=== PATIENT | female | born 1950 | race Caucasian/White ===

== ENCOUNTER 2017-01-02 20:34 | Emergency (ER) | payer OTHER ==
[2017-01-02 20:44] VITALS: BP 200/77; PULSE 72; TEMP 97.3; BMI 34.3
[2017-01-02] MEDS ORDERED: CODEINE SO4 30 MG TABLET PO ONE (20:47)
--- NOTE | 2017-01-02 20:47 | PDOC ---
History of Present Illness - General History Source: Patient, Family Exam Limitations: No Limitations - History of Present Illness Initial Comments: 01/02/17 21:04 Patient is 66 year old female with a significant past medical history of multiple sclerosis, heart murmur, hypertension, and hyperlipidemia who presents to the ED with 4 days of productive cough with yellow sputum. The patient reports the productive cough has been progressively worse and is made worse with cold air. The patient also reports a subjective fever that resolved approx. two days ago. The patient reports to have taken Tylenol for the fever with relief. The patient also reports a tingling sensation in her hands. The patient denies headache, blurred vision, double vision, or sweating. The patient denies shortness of breath, chest pain, or palpitations. The patient denies nausea, vomiting, diarrhea or constipation. Allergies: Cortisone and Levofloxacin Past surgical history: Two cardiac stents Social history: Social drinker. Nonsmoker. Denies recreational drug use. Family history: The patient report a familial history of maternal and paternal heart problems and maternal hypertension. Primary Care Physician: Dr. Jose L Cordoba <Ino Roman - Last Filed: 01/02/17 21:04> <Willam Burciaga - Last Filed: 01/03/17 06:36> - General Chief Complaint: Respiratory Stated Complaint: COUGH & FEVER Time Seen by Provider: 01/02/17 20:41 Past History <Ino Roman - Last Filed: 01/02/17 21:04> <Willam Burciaga - Last Filed: 01/03/17 06:36> - Past Medical History Allergies/Adverse Reactions: Allergies Allergy/AdvReac Type Severity Reaction Status Date / Time cortisone Allergy Unknown Verified 01/02/17 20:36 levofloxacin [From Levaquin] Allergy Unknown Verified 01/02/17 20:36 Home Medications: Ambulatory Orders Aspirin [Aspirin EC] 81 mg PO DAILY 01/02/17 Atorvastatin Ca [Lipitor] 40 mg PO DAILY 01/02/17 Carvedilol [Coreg -] 12.5 mg PO BID 01/02/17 Clopidogrel Bisulfate [Plavix -] 75 mg PO DAILY 01/02/17 Guaifenesin/Codeine Phosphate [Codeine-Guaifen 10-100 mg/5 ml] 15 ml PO HS PRN # 100 liquid MDD 15ml 01/02/17 Irbesartan [Avapro] 300 mg PO DAILY 01/02/17 Review of Systems - Review of Systems Comments:: 01/02/17 21:05 GENERAL/CONSTITUTIONAL: +Fever (resolved). No chills. No weakness. HEAD, EYES, EARS, NOSE AND THROAT: No change in vision. No ear pain or discharge. No sore throat. CARDIOVASCULAR: No chest pain or shortness of breath. RESPIRATORY: +Productive Cough with yellow sputum. No wheezing, or hemoptysis. GASTROINTESTINAL: No nausea, vomiting, diarrhea or constipation. GENITOURINARY: No dysuria, frequency, or change in urination. MUSCULOSKELETAL: No joint or muscle swelling or pain. No neck or back pain. SKIN: No rash NEUROLOGIC: +Tingling sensation in hands. No headache, vertigo, loss of consciousness, or change in strength. ENDOCRINE: No increased thirst. No abnormal weight change. HEMATOLOGIC/LYMPHATIC: No anemia, easy bleeding, or history of blood clots. ALLERGIC/IMMUNOLOGIC: No hives or skin allergy. <Ino Roman - Last Filed: 01/02/17 21:04> *Physical Exam - Vital Signs Last Vital Signs Temp Pulse Resp BP Pulse Ox 97.3 F L 72 16 200/77 98 01/02/17 20:35 01/02/17 20:35 01/02/17 20:35 01/02/17 20:35 01/02/17 20:35 - Physical Exam Comments: 01/02/17 21:05 GENERAL: Awake, alert, and fully oriented, in no acute distress HEAD: No signs of trauma EYES: PERRLA, EOMI, sclera anicteric, conjunctiva clear ENT: Auricles normal inspection, hearing grossly normal, nares patent, oropharynx clear without exudates. Moist mucosa NECK: Normal ROM, supple, no lymphadenopathy, JVD, or masses LUNGS: Breath sounds equal, clear to auscultation bilaterally. No wheezes, and no crackles HEART: +Murmur. Regular rate and rhythm, normal S1 and S2, no rubs or gallops ABDOMEN: Soft, nontender, normoactive bowel sounds. No guarding, no rebound. No masses EXTREMITIES: Normal range of motion, no edema. No clubbing or cyanosis. No cords, erythema, or tenderness NEUROLOGICAL: Cranial nerves II through XII grossly intact. Normal speech, normal gait SKIN: Warm, Dry, normal turgor, no rashes or lesions noted. <Ino Roman - Last Filed: 01/02/17 21:04> ED Treatment Course - Medications Given in the ED: ED Medications Discontinued Medications Generic Name Dose Route Start Last Admin Trade Name Freq PRN Reason Stop Dose Admin Codeine Sulfate 60 mg 01/02/17 20:47 01/02/17 21:04 Codeine Sulfate - PO 01/02/17 20:48 Not Given ONCE ONE Guaifenesin/Codeine Phosphate 20 ml 01/02/17 21:00 01/02/17 21:00 Robitussin Ac - PO 01/02/17 21:01 20 ml ONCE ONE Administration <Ino Roman - Last Filed: 01/02/17 21:04> Medical Decision Making - Medical Decision Making 01/03/17 06:36 clear lungs with nl sat bronchitis anti-tussive <Willam Burciaga - Last Filed: 01/03/17 06:36> *DC/Admit/Observation/Transfer - Attestations Scribe Attestion: 01/02/17 21:06 Documentation prepared by Ino Roman, acting as medical records technician for Willam Burciaga MD. <Ino Roman - Last Filed: 01/02/17 21:04> <Willam Burciaga - Last Filed: 01/03/17 06:36> Diagnosis at time of Disposition: Cough - Discharge Dispostion Disposition: HOME Condition at time of disposition: Good - Prescriptions Prescriptions: Guaifenesin/Codeine Phosphate [Codeine-Guaifen 10-100 mg/5 ml] 15 ml PO HS PRN # 100 liquid MDD 15ml PRN Reason: Cough - Referrals Referrals: Jose L Cordoba [Primary Care Provider] - - Patient Instructions Printed Discharge Instructions: Cough - Post Discharge Activity
[2017-01-02] MEDS ORDERED: guaiFENesin/CODEINE 10 ML UNIT-DOSE CUPS ONE (20:59)
[2017-01-02] MEDS ORDERED: guaiFENesin/CODEINE 10 ML UNIT-DOSE CUPS PO ONE (21:00)
== END 2017-01-02 21:05 | disposition home or self-care (01) ==
LOC: FER 20:34
DX: R05 Cough (principal); G35 Multiple sclerosis; R01.1 Cardiac murmur, unspecified; I10 Essential (primary) hypertension; E78.5 Hyperlipidemia, unspecified; Z88.8 Allergy status to other drugs, medicaments and biological substances; Z79.82 Long term (current) use of aspirin
CPT/HCPCS: 99281-25